=== PATIENT | male | born 1985 | race Caucasian/White ===

== ENCOUNTER 2017-05-08 11:52 | Emergency (ER) | payer OTHER ==
[~2017-05-08] VITALS: Ht 182.9 cm; Wt 77.3 kg
[2017-05-08 11:59] VITALS: BP 147/86; PULSE 67; RESP 20; O2SAT 100
--- NOTE | 2017-05-08 12:15 | ED.REPORT ---
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 Associated symptoms include pain that radiates into the suprapubic area and his right testicle, chills, nausea and urinary urgency with decreased frequency. He denies flank pain, dysuria or fever. He rates the pain as a severe 9/10. Nursing Notes Stated Complaint: EXTREME ABD PAIN Chief Complaint: Male Abdominal Pain Nursing Notes Reviewed: Yes Allergies: Coded Allergies: No Known Allergies (Unverified Allergy, 04/29/12) No Active Prescriptions or Reported Meds General Time Seen by MD: 12:10 Chief Complaint Abdominal pain Hx Obtained From: Patient Arrived By: Walk-in Sudden in Onset?: Yes Onset Occurred: 1 - 4 hours ago Symptom Duration: Since onset Location: : RLQ Quality: Painful, Stabbing Radiation: : Suprapubic Severity: Current: Severe Severity: Maximum: Pain level 9 out of 10 Associated with: Reports: Nausea Recent Healthcare: No recent doctor visit, No recent hospitalization Similar Sx Previous: No Past Medical History Past Medical History MRSA Smoking History Unknown if Ever Smoker Social History Drug Use: In recovery, IV drugs, Meth Ambulatory Status Independent Review of Systems Constitutional: Reports: Chills, Denies: Fever Respiratory: Denies: Non-productive cough, Shortness of breath GI: Reports: Abdominal pain, Nausea Male: Reports Testicular pain, Reports Urinary frequency (decreased frequency), Reports Urinary urgency, Denies Dysuria, Denies Flank pain Complete sys rev & neg: except as marked. Skin: Denies Itching, Denies Rash Physical Exam Initial Vital Signs Vital Signs (First) Date Time Temp Pulse Resp B/P Pulse Ox O2 Delivery O2 Flow Rate FiO2 05/08/17 11:59 36.4 67 20 147/86 100 Room Air Initial VS: Reviewed General/Constitutional: Awake, Alert Distress / Hydration: Positive: Distress moderate Respiratory / Chest: Atraumatic, Breath sounds NL, Breath sounds = bilat, No respiratory distress Cardiovascular: Heart rate NL, Regular rhythm, Heart sounds NL Abdomen: Atraumatic, Soft Tenderness/Guarding/Rebound: Positive: Tender RLQ... (Severe) guarding and rebounding present Back: Atraumatic, Non-tender, No CVA tenderness Head / Eyes: Atraumatic, Normocephalic, PERRL, EOMI Male Genitourinary: Atraumatic, Inspection NL, Penis NL, Testes NL complains of right testicular pain no swelling of the testicle Neurologic: Oriented X3, Speech NL, No motor deficits, No sensory deficits Upper Extremity / MS: Atraumatic, Full range of motion Skin: Atraumatic, Color NL, No rash, Warm, Dry Psychiatric: Affect NL, Mood NL Interpretation & Diagnostics Interpretation & Diagnostics: APPENDIX US: IMPRESSION: The appendix is normal in caliber but non-compressible. No free fluid in the right lower quadrant. Cannot rule out early acute appendicitis. Dictated by: Eusebio Lou M.D. on 05/08/2017 at 15:09 Approved by: Eusebio Lou M.D. on 05/08/2017 at 15:19 ADDENDUM: Voice recognition errors corrected (underlined) in the body of report. Dictated by: Eusebio Lou M.D. on 05/08/2017 at 15:23 Approved by: Eusebio Lou M.D. on 05/08/2017 at 15:24 TESTICULAR US: IMPRESSION: 1. Normal size and echotexture of the testes bilaterally. Doppler ultrasound demonstrated normal arterial flow to both testes. No ultrasound evidence for testicular torsion at the time of examination. Intermittent torsion, however, is not excluded. 2. Varicosity of left scrotum. Dictated by: Eusebio Lou M.D. on 05/08/2017 at 15:20 Transcribed by: ZAHRA on 05/08/2017 at 15:23 Approved by: Eusebio Lou M.D. on 05/08/2017 at 15:28 Lab Results Interpretation Result Diagram: 05/08/17 1215 05/08/17 1215 Test 05/08/17 12:15 05/08/17 14:15 White Blood Count 6.9th/mm3 (3.8-10.1) Red Blood Count 5.22mil/mm3 (4.40-5.80) Hemoglobin 14.8g/dL (13.8-17.2) Hematocrit 43.5% (41.0-50.0) Mean Corpuscular Volume 83.3fL (81-100) Mean Corpuscular Hemoglobin 28.4pg (27.0-35.0) Mean Corpuscular Hemoglobin Concent 34.0% (32.0-37.0) Red Cell Distribution Width 13.7% (12.3-15.4) Platelet Count 257bil/L (150-400) Neutrophils (%) (Auto) 48.8% (40-74) Lymphocytes (%) (Auto) 38.8% (14-46) Monocytes (%) (Auto) 6.5% (4-12) Eosinophils (%) (Auto) 5.1% (0-5) Basophils (%) (Auto) 0.7% (0-3) Sodium Level 137mEq/L (134-144) Potassium Level 3.9mEq/L (3.5-5.2) Chloride Level 99mEq/L (97-108) Carbon Dioxide Level 25mmol/L (18-29) Blood Urea Nitrogen 15mg/dL (6-20) Creatinine 1.15mg/dL (0.76-1.27) Estimat Glomerular Filtration Rate 80mL/min (>59) Glucose Level 125mg/dL (60-99) Calcium Level 9.0mg/dL (8.5-10.1) Magnesium Level 1.9mg/dL (1.6-2.6) Total Bilirubin 0.3mg/dL (0.0-1.2) Aspartate Amino Transf (AST/SGOT) 16U/L (0-50) Alanine Aminotransferase (ALT/SGPT) 12U/L (0-44) Alkaline Phosphatase 79U/L (25-150) Total Protein 7.7g/dL (6.4-8.4) Albumin 4.5g/dL (3.4-5.0) Lipase 36U/L (13-60) Hold García Top Tube Received (Received) Hold Urine Received (Received) CT Abd / Pelvis Interpretation IMPRESSION: 1. A 1 mm stone within the urinary bladder near the right ureterovesical junction, consistent with a recently passed stone. There is trace right periureteral stranding. No hydronephrosis or hydroureter. 2. Normal appendix. 3. Small hiatal hernia. Dictated by: Eusebio Lou M.D. on 05/08/2017 at 16:27 Approved by: Eusebio Lou M.D. on 05/08/2017 at 16:32 Interpretation / Wet Read by: Interpret - Radiologist Re-Eval/Medical Decision Med Decision/Clinical Course Presents with severe right lower quadrant pain. Initially felt to be appendicitis possibility of right testicular torsion was entertained. Began with an ultrasound when all of that proved unremarkable CT scan revealed a 1 mm stone R he passed into the bladder. Patient was pain-free and feeling remarkably well at time of discharge Re-Evaluation/Progress #1: Time of Eval: 13:47 Patient Status: Condition improved, Pain improved Re-Evaluation/Progress Note: Discussed US results and plan for CT. Patient reports that his pain has greatly decreased to a 4/10 and he appears more comfortable. Re-Evaluation/Progress #2: Time of Eval: 16:57 Patient Status: Pain improved Re-Evaluation/Progress Note: Discussed CT results and plan for discharge. Patient understands and agrees to the plan. All questions were addressed. Counseled Regarding: Diagnosis, Lab results, Need for follow-up, When/why to return to ED Patient Discharge & Departure Primary Impression: Nephrolithiasis Disposition: Home Discharge Condition All VS Reviewed: Yes Condition: Stable Patient Instructions: Kidney Stones (ED) Additional Instructions: The CT scan showed that you did have a kidney stone but you have passed it. Your pain should continue to improve over the next few days. You can take Tylenol or ibuprofen as needed if you experience any pain. Follow up with your primary care physician next week. Return to the emergency department if you develop any new or concerning symptoms. Referrals: Alli Emery MD (PCP) Brandon Attestation Portions of this note were transcribed by Maddison Padilla. I, Dr. De Leon personally performed the history, physical exam and medical decision-making; I reviewed and confirmed the accuracy of the information in the transcribed note. Signed by: Brandon Lora, 05/08/17 and 1700 copies to: Alli Emery MD, Shawna L MD May 08, 2017 12:15 [place] Padilla May 08, 2017 12:32
[2017-05-08] MEDS ORDERED: Ondansetron 2 mg/mL 2 mL Inj ONE (12:18)
[2017-05-08] MEDS ORDERED: 0.9% Sodium Chloride 1,000 ML IV ONE (12:24)
[2017-05-08] MEDS ORDERED: HYDROmorphone 1 mg/mL Inj IVPUSH PRN (12:25)
[2017-05-08] MEDS ORDERED: Ondansetron 2 mg/mL 2 mL Inj IVPUSH ONE (12:25)
[2017-05-08] MEDS ORDERED: HYDROmorphone 1 mg/mL Inj IVPUSH ONE (12:25)
[2017-05-08 12:33] LABS: BASOPHILS % (AUTO) 0.7 % (0-3); EOSINOPHILS % (AUTO) 5.1 % (0-5); MONOCYTES % (AUTO) 6.5 % (4-12); Mean Corpuscular Hemoglobin 28.4 pg (27.0-35.0); Mean Corpuscular Volume 83.3 fL (81-100); NEUTROPHILS % (AUTO) 48.8 % (40-74); Platelet Count 257 bil/L (150-400)
[2017-05-08 12:52] LABS: Magnesium 1.9 mg/dL (1.6-2.6)
[2017-05-08 13:42] VITALS: BP 118/69; PULSE 70; RESP 16
--- NOTE | 2017-05-08 15:21 | DRSVH ---
PROCEDURE: US APPENDIX INDICATIONS: RLQ abdominal pain, surgical abdomen TECHNIQUE: Real-time focused scanning was performed of the abdomen with attention to the appendix, with image do cumentation. COMPARISON: None. FINDINGS: Appendix visualization: This Appendix measurements: 4.3 x 5.5 Associated findings: Echogenic fat: Absent Appendiceal compressibility: Noncompressible Appendicoliths: Nonvisualized Nearby free fluid: None Lymphadenopathy: None Tenderness on exam: Absent IMPRESSION: The appendix is normal in caliber but non-compressible. No free fluid in the right lower quadrant. Cannot rule out early acute appendicitis. Dictated by: Eusebio Lou M.D. on 05/08/2017 at 15:09 Approved by: Eusebio Lou M.D. on 05/08/2017 at 15:19
--- NOTE | 2017-05-08 15:24 | DRSVH ---
PROCEDURE: US TESTICULAR SONOGRAM WITH DOPPLER INDICATIONS: R testitular pain, ? torsion TECHNIQUE: Real-time scanning was performed of the scrotum and testicles, with image documentation. Color and p ulse Doppler interrogation was performed of both testicles. COMPARISON: [facility], US, US APPENDIX, 05/08/2017, 12:59. FINDINGS: Right: Testicle is normal in size at 5.6 x 2.6 x 3.4 cm, and homogenous in echotexture. Epididymis is normal in overall size and morphology. No hydrocele or varicoceles. Overlying scrotal skin is no rmal in thickness. Left: Testicle is normal in size at 5.2 x 2.7 x 3.4 cm, and homogeneous in echotexture. Epididymis is normal in overall size and morphology. No hydrocele or varicoceles. Prominent veins in the left scrotum consistent with varicosity. Overlying scrotal skin is normal in thickness. Doppler: Color and pulse Doppler demonstrate normal and symmetric arterial flow in both testicles. IMPRESSION: 1. Normal size and echotexture of the testes bilaterally. Doppler ultrasound demonstrated normal carmel rial flow to both testes. No ultrasound evidence for testicular torsion at the time of examination. I ntermittent torsion, however, is not excluded. 2. Varicosity of left scrotum. Dictated by: Eusebio Lou M.D. on 05/08/2017 at 15:20 Transcribed by: ZAHRA on 05/08/2017 at 15:23 Approved by: Eusebio Lou M.D. on 05/08/2017 at 15:28
[2017-05-08 16:18] VITALS: BP 114/67; PULSE 81; RESP 17; O2SAT 100
--- NOTE | 2017-05-08 16:34 | DRSVH ---
PROCEDURE: CT KUB ([id number]) INDICATIONS: 31 year-old male with right lower quadrant pain. TECHNIQUE: Noncontrast 5 mm thick sections acquired from the diaphragms to the symphysis. 5 mm thick coronal an d sagittal reformats were then performed. For radiation dose reduction, the following was used: aut omated exposure control, adjustment of mA and/or kV according to patient size. COMPARISON: None. FINDINGS: Image quality: Excellent. Lung bases: Bibasilar atelectasis. Heart size is normal. There is a small hiatal hernia. Urinary system: Both kidneys are normal in size. No kidney stones. No hydronephrosis or perinephri c fat stranding. Both ureters appear non-dilated throughout their expected courses. There is trace right periureteral stranding. A 1 mm stone is present within the bladder near the right ureterovesica l junction. Bladder wall thickness is uniform. Bladder is not fully distended. Other solid organs: Liver and spleen are normal in size. Gallbladder is normal. Pancreas is normal in contours. No adrenal nodules. Peritoneum and bowel: Unenhanced bowel loops demonstrate normal wall thickness and caliber. Appendi x is normal. No free fluid or air. Nodes and vessels: No retroperitoneal or mesenteric adenopathy by size criteria. Aorta and inferior vena cava are normal in caliber. Abdominal wall: No ventral hernias. Pelvis: No free pelvic fluid. No inguinal hernias or adenopathy. Bones: No suspicious bony lesions. No vertebral body compression fractures. IMPRESSION: 1. A 1 mm stone within the urinary bladder near the right ureterovesical junction, consistent with a recently passed stone. There is trace right periureteral stranding. No hydronephrosis or hydroureter. 2. Normal appendix. 3. Small hiatal hernia. Dictated by: Eusebio Lou M.D. on 05/08/2017 at 16:27 Approved by: Eusebio Lou M.D. on 05/08/2017 at 16:32
== END 2017-05-08 17:10 | disposition home or self-care (01) ==
LOC: SED 11:52
DX: N20.0 Calculus of kidney (principal)
CPT/HCPCS: 36415; 74176; 76705; 76870; 80053; 83690; 83735; 85025; 93975; 96361; 96374; 96375; 99285; J1170; J1885; J7030